=== PATIENT | male | born 1930 | race Caucasian/White ===

== ENCOUNTER 2017-05-21 16:48 | Emergency (ER) | payer OTHER ==
[~2017-05-21] VITALS: Ht 167.6 cm; Wt 72.9 kg
[~2017-05-21 16:48] MED LIST: ALEVE220 MG PO; ASPIR-TRIN325 M1 PO; ATORVASTATIN CA20 MG PO; EFUDEX 5% CREAM25 GM TP; TENORMIN50 MG PO
[2017-05-21 18:00] LABS: MCH 33.4 PG (29.0-34.0); MCHC 34.5 G/DL (30.0-36.0); MCV 96.7 FL (86-99); MEAN PLAT.VOLUME 10.2 uM^3 (9.0-12.4); PLATELET COUNT 178 K/uL (156-360); RBC DIS.WIDTH-CV 12.5 % (11.8-14.6); RBC DIS.WIDTH-SD 44.8 % (39-53); RED BLOOD COUNT 4.55 M/uL (4.00-5.50); WHITE BLOOD COUNT 6.6 K/uL (4.1-10.2)
[2017-05-21 18:12] LABS: CHLORIDE 107 mEq/L (99-109); POTASSIUM 5.2 mEq/L (3.7-5.4); SODIUM 142 mEq/L (136-147)
[2017-05-21 18:13] LABS: GLUCOSE 100 mg/dL (70-99)
[2017-05-21 18:15] LABS: ANION GAP 7 MEQ/L (2-14)
[2017-05-21 18:17] LABS: GFR ESTIMATE (CALCULATED) 51 mL/min/
[2017-05-21 18:18] LABS: UREA NITROGEN (BUN) 19 mg/dL (9-23)
[2017-05-21 18:25] LABS: TROP-I INTERPRETATION NEGATIVE; TROPONIN-I < 0.01 ng/mL (0.0-0.30)
[2017-05-21 20:10] VITALS: BP 159/77
== END 2017-05-21 20:14 | disposition home or self-care (01) ==
LOC: EME 16:48
PROVIDERS: Emergency Medicine
DX: R07.9 Chest pain, unspecified (principal); M94.0 Chondrocostal junction syndrome [Tietze]; Z85.46 Personal history of malignant neoplasm of prostate; Z96.642 Presence of left artificial hip joint; Z79.82 Long term (current) use of aspirin
CPT/HCPCS: 71020; 80048; 84484; 85027; 85379; 99281; 99284

== ENCOUNTER 2018-04-01 00:46 | Inpatient (IN) | payer OTHER, BC ==
[~2018-04-01] VITALS: Ht 167.6 cm; Wt 71.4 kg
[2018-04-01 01:26] LABS: APPEARANCE CLEAR ((CLEAR)); BILIRUBIN NEGATIVE; BLOOD SMALL; COLOR YELLOW ((YELLOW)); GLUCOSE (STRIP) NEGATIVE; KETONES NEGATIVE; LEUKOCYTES SMALL; NITRITE NEGATIVE; PROTEIN (STRIP) 30
[2018-04-01 01:30] LABS: BACTERIA NONE SEEN /HPF; EPITHELIAL CELLS RARE /HPF; MUCUS TRACE /LPF; RED BLOOD CELLS 0-5 /HPF (0-5); UCUL ADDED? YES; WHITE BLOOD CELLS 30-40 /HPF (0-5)
[2018-04-01 01:31] LABS: BASOPHIL (%) 0.1 % (0-1); EOSINOPHIL (%) 0.1 % (0-5); HEMATOCRIT 43.5 % (38.0-50.0); IMMATURE GRANULOCYTE (%) 0.5 % (0.0-0.7); LYMPHOCYTE (%) 12.6 % (15-42); LYMPHOCYTE COUNT 1.7 K/uL (1.0-2.8); MCH 32.9 PG (29.0-34.0); MCHC 34.5 G/DL (30.0-36.0); MCV 95.4 FL (86-99); MONOCYTE (%) 5.8 % (3-12); MONOCYTE COUNT 0.8 K/uL (0-0.8); NEUTROPHIL (%) 80.9 % (45-76); PLATELET COUNT 168 K/uL (156-360); RBC DIS.WIDTH-CV 13.1 % (11.8-14.6); RBC DIS.WIDTH-SD 46.5 % (39-53); RED BLOOD COUNT 4.56 M/uL (4.00-5.50); WHITE BLOOD COUNT 13.6 K/uL (4.1-10.2)
[2018-04-01 01:44] LABS: ALBUMIN 4.4 g/dL (3.2-4.8); CHLORIDE 100 mEq/L (99-109); POTASSIUM 4.8 mEq/L (3.7-5.4); SODIUM 135 mEq/L (136-147)
[2018-04-01 01:46] LABS: GLUCOSE 129 mg/dL (70-99); TOTAL PROTEIN 7.2 g/dL (6.4-8.3)
[2018-04-01 01:48] LABS: TOTAL BILIRUBIN 2.1 mg/dL (0.0-1.0)
[2018-04-01 01:50] LABS: ALKALINE PHOSPHATASE 116 IU/L (3-129); CREATININE 1.1 mg/dL (0.6-1.3); GFR ESTIMATE (CALCULATED) > 59 mL/min/ (58.99-99999)
[2018-04-01 01:51] LABS: UREA NITROGEN (BUN) 15 mg/dL (9-23)
[2018-04-01 01:52] LABS: AST (GOT) 27 IU/L (2-34)
[2018-04-01 01:53] LABS: ALT (GPT) 17 IU/L (3-49); LIPASE 44 U/L (1.0-51.0)
[2018-04-01] MEDS ORDERED: PRIMIDONE50 MG PO (03:48)
[2018-04-01] MEDS ORDERED: PROBIOTIC1 EAC1 PO (03:48)
[2018-04-01] MEDS ORDERED: NIACIN250 M1 PO (03:49)
[2018-04-01] MEDS ORDERED: TURMERIC 500 M1 EACH PO (03:50)
[2018-04-01 05:12] LABS: C-REACTIVE PROTEIN 64.9 MG/L (0-10)
[2018-04-01 05:16] VITALS: BP 112/60
[2018-04-01 07:41] VITALS: BP 101/54
[2018-04-01 11:30] VITALS: BP 118/58
[2018-04-01] MEDS ORDERED: ZINC30 MG PO (13:37)
[2018-04-01 15:50] VITALS: BP 130/62
[2018-04-01 19:17] VITALS: BP 165/75
[2018-04-01 23:12] VITALS: BP 150/70
[2018-04-02 06:37] LABS: BASOPHIL (%) 0.2 % (0-1); EOSINOPHIL (%) 0.8 % (0-5); EOSINOPHIL COUNT 0.1 K/uL (0-0.3); HEMATOCRIT 36.4 % (38.0-50.0); HEMOGLOBIN 12.1 G/DL (12.5-16.6); IMMATURE GRANULOCYTE (%) 0.3 % (0.0-0.7); LYMPHOCYTE (%) 12.7 % (15-42); LYMPHOCYTE COUNT 0.8 K/uL (1.0-2.8); MCH 32.2 PG (29.0-34.0); MCHC 33.2 G/DL (30.0-36.0); MCV 96.8 FL (86-99); MONOCYTE (%) 9.2 % (3-12); MONOCYTE COUNT 0.6 K/uL (0-0.8); NEUTROPHIL (%) 76.8 % (45-76); NEUTROPHIL COUNT 4.9 K/uL (1.8-6.4); PLATELET COUNT 136 K/uL (156-360); RBC DIS.WIDTH-CV 13.2 % (11.8-14.6); RBC DIS.WIDTH-SD 47.7 % (39-53); RED BLOOD COUNT 3.76 M/uL (4.00-5.50); WHITE BLOOD COUNT 6.4 K/uL (4.1-10.2)
[2018-04-02 06:41] LABS: ALBUMIN 3.3 G/DL (3.2-4.8); ALKALINE PHOSPHATASE 71 IU/L (3-129); ALT (GPT) 10 IU/L (3-49); AST (GOT) 15 IU/L (2-34); CHLORIDE 107 MEQ/L (99-109); CREATININE 1.2 MG/DL (0.6-1.3); DIRECT BILIRUBIN 0.2 mg/dL (0.0-0.3); GFR ESTIMATE (CALCULATED) > 59 mL/min/ (58.99-99999); POTASSIUM 4.4 MEQ/L (3.7-5.4); TOTAL BILIRUBIN 0.9 MG/DL (0.0-1.0); TOTAL PROTEIN 5.3 G/DL (6.4-8.3); UREA NITROGEN (BUN) 12 mg/dL (9-23)
[2018-04-02 06:42] LABS: ALBUMIN 3.3 G/DL (3.2-4.8); ALKALINE PHOSPHATASE 71 IU/L (3-129); ALT (GPT) 10 IU/L (3-49); AST (GOT) 14 IU/L (2-34); CHLORIDE 107 MEQ/L (99-109); CREATININE 1.2 MG/DL (0.6-1.3); GFR ESTIMATE (CALCULATED) > 59 mL/min/ (58.99-99999); GLUCOSE 91 mg/dL (70-99); GLUCOSE 92 mg/dL (70-99); POTASSIUM 4.3 MEQ/L (3.7-5.4); SODIUM 141 MEQ/L (136-147); SODIUM 142 MEQ/L (136-147); TOTAL PROTEIN 5.3 G/DL (6.4-8.3); UREA NITROGEN (BUN) 12 mg/dL (9-23)
[2018-04-02 07:46] VITALS: BP 148/63
[2018-04-02] MEDS ORDERED: BACTRIM,SEPT1 TABLET PO (09:22)
[2018-04-02] MEDS ORDERED: FLAGYL500 MG PO (09:22)
[2018-04-02 16:00] VITALS: BP 149/63
[2018-04-02 17:33] LABS: C DIFF TOXIN NEGATIVE (NEGATIVE)
[2018-04-02 23:34] VITALS: BP 157/72
[2018-04-03 06:14] LABS: HEMATOCRIT 34.4 % (38.0-50.0); HEMOGLOBIN 11.6 G/DL (12.5-16.6); MCHC 33.7 G/DL (30.0-36.0); PLATELET COUNT 132 K/uL (156-360); RBC DIS.WIDTH-CV 13.2 % (11.8-14.6); RBC DIS.WIDTH-SD 45.6 % (39-53); RED BLOOD COUNT 3.62 M/uL (4.00-5.50); WHITE BLOOD COUNT 5.7 K/uL (4.1-10.2)
[2018-04-03 06:40] LABS: CHLORIDE 107 MEQ/L (99-109); GFR ESTIMATE (CALCULATED) > 59 mL/min/ (58.99-99999); GLUCOSE 103 mg/dL (70-99); MAGNESIUM 1.9 mg/dl (1.3-2.7); POTASSIUM 3.6 MEQ/L (3.7-5.4); SODIUM 139 MEQ/L (136-147); UREA NITROGEN (BUN) 7 mg/dL (9-23)
[2018-04-03 06:55] VITALS: BP 143/67
[2018-04-03 15:10] VITALS: BP 154/65
== END 2018-04-03 16:05 | disposition home or self-care (01) | DRG 392 ==
LOC: EME 00:46 → 5EAST 03:35 → EDOF 03:35 → ENRESERV 03:42 → 5EAST 04:43
PROVIDERS: Emergency Medicine; Hospitalist; Internal Medicine
DX: K57.12 Diverticulitis of small intestine without perforation or abscess without bleeding (principal); I10 Essential (primary) hypertension; Z90.79 Acquired absence of other genital organ(s); Z96.642 Presence of left artificial hip joint; E78.5 Hyperlipidemia, unspecified; Z85.46 Personal history of malignant neoplasm of prostate; N39.0 Urinary tract infection, site not specified; E87.1 Hypo-osmolality and hyponatremia; R60.0 Localized edema; G47.30 Sleep apnea, unspecified; E66.9 Obesity, unspecified; Z68.25 Body mass index [BMI] 25.0-25.9, adult; K80.20 Calculus of gallbladder without cholecystitis without obstruction; N28.1 Cyst of kidney, acquired; N20.0 Calculus of kidney; M51.36 Other intervertebral disc degeneration, lumbar region
CPT/HCPCS: 74177; 80048; 80053; 80076; 81003; 82948; 83605; 83690; 83735; 85025; 85027; 86140; 87040; 87077; 87086; 87186; 87493; 93971; 99281; 99285; J0744; J1644; J1956; J7030; S0030; S0074

== ENCOUNTER 2018-04-07 23:01 | Emergency (ER) | payer OTHER, BC ==
[~2018-04-07] VITALS: Ht 167.6 cm; Wt 71.8 kg
[~2018-04-07 23:01] MED LIST changes: +BACTRIM,SEPT1 TABLET PO; +FLAGYL500 MG PO; +NIACIN250 M1 PO; +PRIMIDONE50 MG PO; +PROBIOTIC1 EAC1 PO; +TURMERIC 500 M1 EACH PO; +ZINC30 MG PO
[2018-04-07 23:35] LABS: HEMATOCRIT 36.6 % (38.0-50.0); HEMOGLOBIN 12.7 G/DL (12.5-16.6); MCH 32.8 PG (29.0-34.0); MCHC 34.7 G/DL (30.0-36.0); MCV 94.6 FL (86-99); RBC DIS.WIDTH-CV 13.5 % (11.8-14.6); RBC DIS.WIDTH-SD 46.8 % (39-53); RED BLOOD COUNT 3.87 M/uL (4.00-5.50); WHITE BLOOD COUNT 11.6 K/uL (4.1-10.2)
[2018-04-07 23:37] LABS: PLATELET COUNT 206 K/uL (156-360)
[2018-04-07 23:45] LABS: ALBUMIN 3.8 g/dL (3.2-4.8); CHLORIDE 101 mEq/L (99-109); SODIUM 134 mEq/L (136-147)
[2018-04-07 23:48] LABS: GLUCOSE 125 mg/dL (70-99); TOTAL PROTEIN 6.8 g/dL (6.4-8.3)
[2018-04-07 23:51] LABS: ALKALINE PHOSPHATASE 87 IU/L (3-129); CREATININE 1.4 mg/dL (0.6-1.3); GFR ESTIMATE (CALCULATED) 51 mL/min/ (58.99-99999)
[2018-04-07 23:52] LABS: UREA NITROGEN (BUN) 13 mg/dL (9-23)
[2018-04-07 23:53] LABS: AST (GOT) 24 IU/L (2-34)
[2018-04-07 23:54] LABS: ALT (GPT) 22 IU/L (3-49)
[2018-04-07 23:55] LABS: LIPASE 60 U/L (1.0-51.0)
[2018-04-08 00:04] LABS: POTASSIUM 4.7 mEq/L (3.7-5.4); TOTAL BILIRUBIN 0.6 mg/dL (0.0-1.0)
[2018-04-08 05:38] VITALS: BP 139/83
== END 2018-04-08 05:37 | disposition home or self-care (01) ==
LOC: EME 23:01
DX: K57.92 Diverticulitis of intestine, part unspecified, without perforation or abscess without bleeding (principal); Z85.46 Personal history of malignant neoplasm of prostate; Z96.642 Presence of left artificial hip joint
CPT/HCPCS: 71046; 74177; 80053; 83690; 85027; 99281; 99284